=== PATIENT | female | born 1980 | race Caucasian/White ===

== ENCOUNTER 2017-10-09 05:40 | Inpatient (IN) ==
[2017-10-09] MEDS ORDERED: FAMOTIDINE 20 MG/2 ML VIAL IV ONE (06:05)
[2017-10-09] MEDS ORDERED: CITRIC ACID/SODIUM CITRATE 30 ML UDCUP PO ONE (06:05)
[2017-10-09] MEDS ORDERED: OXYTOCIN/LR 20 UNIT/1,000 ML BAG IV PRN (06:07)
[2017-10-09] MEDS ORDERED: ceFAZolin 2,000 MG in PREMIX 1 EACH IV ONE (06:23)
[2017-10-09] MEDS: LACTATED RINGERS 1,000 ML IV SCH ×3 (06:32→21:00)
[2017-10-09 06:38] LABS: Basophils % 0.6 % (0.0-0.8); Eosinophils # 0.1 10*3/uL (0.0-0.87); Eosinophils % 0.9 % (0.00-10.9); Hematocrit 31.8 VOL% (35.7-47.0); Hemoglobin 10.4 GM/DL (12.0-16.0); Immature Granulocytes % 0.9 %; Immature Granulocytes Absolute 0.06 #; Lymphocytes # 1.6 10*3/uL (1.4-4.0); Lymphocytes % 23.6 % (21.3-54.2); Mean Corpuscular HGB Conc 32.7 GM/DL (32-36); Mean Corpuscular Hemoglobin 28 PG (27-34); Mean Corpuscular Volume 86.6 FL (87-102); Mean Platelet Volume 10.1 FL (9.6-12.0); Monocytes # 0.4 10*3/uL (0.11-0.8); Monocytes % 6.2 % (1.7-12.7); Neutrophils # 4.5 10*3/uL (1.4-7.4); Neutrophils % 67.8 % (38.7-73.9); Platelet Count 329 T/CUMM (130-400); Red Blood Count 3.67 MC/CUMM (3.8-5.5); Red Cell Distribution Width 13.9 % (9.3-17.3); White Blood Count 6.6 T/CUMM (4-12)
[2017-10-09 07:06] LABS: Albumin 2.8 G/DL (3.4-5.0); Bilirubin,Total 0.4 MG/DL (0.2-1.0); Calcium 8.3 MG/DL (8.5-10.1); Potassium 3.8 MMOL/L (3.5-5.1); Total Protein 6.3 G/DL (6.4-8.3)
[2017-10-09] MEDS ORDERED: OXYTOCIN 10 UNIT/ML VIAL ONE (07:40)
[2017-10-09 08:55] LABS: Cord Arterial Blood HCO3 23.2 MMOL/L
[2017-10-09] MEDS ORDERED: BENZOCAINE 20%/MENTHOL 0.5% SPRAY 56 GM CAN TOP PRN (09:07)
[2017-10-09] MEDS ORDERED: BISACODYL 10 MG SUPP RECTAL PRN (09:07)
[2017-10-09] MEDS ORDERED: HYDROCORTISONE 2.5% RECTAL CREAM 30 GM TUBE TOP PRN (09:07)
[2017-10-09] MEDS ORDERED: oxyCODONE/ACETAMINOPHEN 5-325 MG TABLET PO PRN (09:07)
[2017-10-09] MEDS ORDERED: ACETAMINOPHEN 325 MG TABLET PO PRN (09:07)
[2017-10-09] MEDS ORDERED: WITCH HAZEL PADS 100/JAR TOP PRN (09:07)
[2017-10-09] MEDS ORDERED: OXYTOCIN/LR 20 UNIT/1,000 ML BAG IV ONE (09:07)
[2017-10-09] MEDS ORDERED: LANOLIN 50% CREAM 0.3 OZ TUBE TOP PRN (09:07)
[2017-10-09] MEDS ORDERED: ONDANSETRON 4 MG/2 ML VIAL IV PRN (09:07)
[2017-10-09] MEDS ORDERED: fentaNYL 100 MCG/2 ML VIAL ONE (09:40)
[2017-10-09] MEDS ORDERED: MORPHINE 10 MG/10 ML VIAL ONE (09:41)
[2017-10-09] MEDS ORDERED: MIDAZOLAM 2 MG/2 ML VIAL ONE (09:41)
[2017-10-09] MEDS ORDERED: HYDROmorphone 2 MG/1 ML VIAL IV PRN (09:55)
[2017-10-09] MEDS ORDERED: RHO(D) IMMUNE GLOBULIN 300 MCG SYRINGE IM ONE (10:00)
[2017-10-09] MEDS ORDERED: DIPH/TET/ACEL PERT BOOSTER VACCINE 0.5 ML VIAL IM ONE (10:00)
[2017-10-09] MEDS ORDERED: MEASLES/MUMPS/RUBELLA VACCINE 0.5 ML VIAL SUBCUT ONE (10:00)
[2017-10-09] MEDS ORDERED: HYDROmorphone 2 MG/1 ML VIAL ONE (10:04)
[2017-10-09] MEDS ORDERED: ACETAMINOPHEN INJ 1,000 MG in PREMIX 1 EACH IV ONE (11:39)
[2017-10-09] MEDS ORDERED: KETOROLAC 30 MG/1 ML VIAL IV ONE (11:39)
[2017-10-09] MEDS ORDERED: NALOXONE 0.4 MG/ML VIAL IV PRN (11:42)
[2017-10-09] MEDS ORDERED: HYDROmorphone PCA 30 MG/30 ML SYRINGE IV SCH (12:00)
[2017-10-09] MEDS: ceFAZolin 2,000 MG in PREMIX 1 EACH IV SCH (15:57)
[2017-10-09] MEDS: DOCUSATE SODIUM 100 MG CAPSULE PO SCH (21:27)
[2017-10-10] MEDS: ceFAZolin 2,000 MG in PREMIX 1 EACH IV SCH ×2 (00:07→09:47)
[2017-10-10] MEDS: LACTATED RINGERS 1,000 ML IV SCH (05:00)
[2017-10-10 06:44] LABS: Basophils # 0.1 10*3/uL (0.0-0.2); Basophils % 0.6 % (0.0-0.8); Eosinophils # 0.1 10*3/uL (0.0-0.87); Eosinophils % 0.8 % (0.00-10.9); Hematocrit 30.4 VOL% (35.7-47.0); Hemoglobin 9.6 GM/DL (12.0-16.0); Immature Granulocytes % 0.7 %; Immature Granulocytes Absolute 0.06 #; Lymphocytes # 1.8 10*3/uL (1.4-4.0); Lymphocytes % 22.1 % (21.3-54.2); Mean Corpuscular HGB Conc 31.6 GM/DL (32-36); Mean Corpuscular Hemoglobin 28 PG (27-34); Mean Corpuscular Volume 89.1 FL (87-102); Mean Platelet Volume 9.7 FL (9.6-12.0); Monocytes # 0.6 10*3/uL (0.11-0.8); Monocytes % 7.5 % (1.7-12.7); Neutrophils # 5.7 10*3/uL (1.4-7.4); Neutrophils % 68.3 % (38.7-73.9); Platelet Count 285 T/CUMM (130-400); Red Blood Count 3.41 MC/CUMM (3.8-5.5); Red Cell Distribution Width 14.1 % (9.3-17.3); White Blood Count 8.3 T/CUMM (4-12)
[2017-10-10] MEDS: oxyCODONE/ACETAMINOPHEN 5-325 MG TABLET PO PRN ×3 (06:45→18:34)
[2017-10-10] MEDS ORDERED: INFLUENZA VIRUS VACCINE 0.5 ML SYRINGE IM ONE (07:27)
[2017-10-10] MEDS ORDERED: ceFAZolin 2,000 MG in PREMIX 1 EACH IV ONE (09:32)
[2017-10-10] MEDS: IBUPROFEN 800 MG TABLET PO PRN (09:51)
[2017-10-10] MEDS: DOCUSATE SODIUM 100 MG CAPSULE PO SCH ×2 (09:51→20:36)
[2017-10-11] MEDS: oxyCODONE/ACETAMINOPHEN 5-325 MG TABLET PO PRN ×2 (01:50→07:53)
[2017-10-11] MEDS: IBUPROFEN 800 MG TABLET PO PRN (01:51)
[2017-10-11 07:31] VITALS: BP 124/78
[2017-10-11] MEDS: DOCUSATE SODIUM 100 MG CAPSULE PO SCH (08:36)
== END 2017-10-11 11:35 | disposition home or self-care (01) | DRG 766 ==
LOC: N.LDOUT 05:40 → N.LD 05:43 → N.OB 12:49
PROVIDERS: ADMIT Specialist; ATTEND Specialist